=== PATIENT | male | born 1955 | race Hispanic/Latino ===

== ENCOUNTER → 2017-12-12 | Outpatient (CLI) | payer BC ==
--- NOTE | 2017-12-12 15:58 | Diagnostic Imaging Report ---
EXAM: CT Abdomen and Pelvis WITHOUT contrast INDICATION: \[id number] \[id number] \S\CALCULUS OF KIDNEY COMPARISON: None. TECHNIQUE: Abdomen and pelvis were scanned utilizing a multidetector helical scanner from the lung base to the pubic symphysis without administration of IV contrast. Absence of intravenous contrast decreases sensitivity for detection of focal lesions and vascular pathology. Coronal and sagittal reformations were obtained. Routine protocol was performed. IV CONTRAST: None ORAL CONTRAST: Water COMPLICATIONS: None RADIATION DOSE: Total DLP: 592.91 mGy*cm Estimated effective dose: (DLP x 0.015 x size factor) mSv CTDIvol has been reviewed. It is below the limits set by the Radiation Protocol Committee (RPC). FINDINGS: LINES and TUBES: None. LOWER THORAX: Bibasilar atelectasis. HEPATOBILIARY: Unenhanced liver is unremarkable. No biliary ductal dilation. GALLBLADDER: No radio-opaque stones or sludge. No wall thickening. SPLEEN: No splenomegaly. 3.5 x 3.5 cm splenic hypodensity, representing a cyst or hemangioma. PANCREAS: No focal masses or ductal dilatation. ADRENALS: No adrenal nodules KIDNEYS/URETERS: 1 cm proximal right ureteral obstructing calculus with mild right hydronephrosis. 0.4 cm right midpole and 0.3 cm right lower pole calculi. Punctate left inferior pole calculus. 1.7 cm right midpole exophytic hypodensity is probably a cyst. Left inferior pole cortical calcification. GI TRACT: No abnormal distention, wall thickening, or evidence of bowel obstruction. There are scattered diverticula within the colon without evidence of diverticulitis. Appendix is normal. PELVIC ORGANS/BLADDER: Unremarkable. LYMPH NODES: No lymphadenopathy. VESSELS: Unremarkable. PERITONEUM / RETROPERITONEUM: No free air or fluid. BONES: Left iliac and tiny left femoral head sclerotic foci are probably bone islands. Mild scoliosis and multilevel degenerative changes of lumbar spine. SOFT TISSUES: Unremarkable. Small fat-containing umbilical hernia. IMPRESSION: 1. 1 cm proximal right ureteral obstructing calculus with mild right hydronephrosis. 2. Additional bilateral subcentimeter nonobstructive renal calculi. Findings discussed with Dr. Mccloud at 3:50 PM, on 12/12/2017. Signed by: Dr. Neftaly Pagan MD on 12/12/2017 3:54 PM
== END ==
LOC: CT 14:22
PROVIDERS: ATTEND Urology
DX: N20.0 Calculus of kidney (principal)
CPT/HCPCS: 74176